=== PATIENT | male | born 1990 | race Caucasian/White ===

== ENCOUNTER 2017-09-15 19:08 | Emergency (ER) | payer OTHER ==
[~2017-09-15] VITALS: Ht 190.5 cm; Wt 104.3 kg
[~2017-09-15 19:08] MED LIST: ALBU90OI INH; DOXY100 PO; HYDACE5 PO; IBUP600 PO; IBUP800 PO; PROM25 PO; RXHYDACE PO; SILSUL1TC TOP
[2017-09-15] MEDS ORDERED: CIPR500 PO (19:21)
[2017-09-15] MEDS ORDERED: BENZ100A PO (19:21)
[2017-09-15] MEDS ORDERED: Flagyl500 MG PO (19:56)
== END 2017-09-15 20:19 | disposition home or self-care (01) ==
LOC: ER 19:08
DX: S81.052A Open bite, left knee, initial encounter (principal); S71.152A Open bite, left thigh, initial encounter; S61.052A Open bite of left thumb without damage to nail, initial encounter; Z23 Encounter for immunization; Z88.0 Allergy status to penicillin; Z79.2 Long term (current) use of antibiotics; W54.0XXA Bitten by dog, initial encounter
CPT/HCPCS: 90471; 90714; 99283

== ENCOUNTER → 2023-10-21 | Outpatient (CLI) | payer BC ==
[~2023-10-21] MED LIST changes: +ASPI81CH PO; +BENZ100A PO; +CIPR500 PO; +ESCI10 PO; +FAMO20; +Flagyl500 MG PO; +METO25 PO; +PANT40 PO
[2023-10-21 09:13] LABS: BASOPHILS ABSOLUTE AUTO 0.02 K/mm3 (0.00-0.23); BASOPHILS PERCENT AUTO 0 % (0-2); EOSINOPHILS ABSOLUTE AUTO 0.01 K/mm3 (0.00-0.68); EOSINOPHILS PERCENT AUTO 0 % (0-6); Hematocrit 47.1 % (37.0-53.0); IMMATURE GRAN ABSOLUTE AUTO 0.02 K/mm3 (0.00-0.10); IMMATURE GRAN PERCENT AUTO 0 % (0-1); LYMPHOCYTES ABSOLUTE AUTO 0.31 K/mm3 (0.84-5.20); LYMPHOCYTES PERCENT AUTO 5 % (21-46); MONOCYTES ABSOLUTE AUTO 0.28 K/mm3 (0.16-1.47); MONOCYTES PERCENT AUTO 4 % (4-13); Mean Corpuscular HGB 27.8 pg (26.0-34.0); Mean Corpuscular Volume 82 fL (80-100); NEUTROPHILS ABSOLUTE AUTO 5.87 K/mm3 (1.96-9.15); NEUTROPHILS PERCENT AUTO 90 % (41-73); Platelet Count 269 K/mm3 (150-400); RDW Coefficient Variation 12.9 % (11.7-14.2); RDW Standard Deviation 37.7 fL (35.1-46.3); Red Blood Cell Count 5.75 M/mm3 (4.30-5.90); White Blood Cell Count 6.51 K/mm3 (4.00-11.30)
[2023-10-21 09:18] LABS: Albumin, Blood 3.8 g/dL (3.4-5.0); Bilirubin, Total 1.4 mg/dL (0.1-1.0); Bun/Creatinine Ratio 12.6 (12.0-20.0); Calcium, Blood 8.9 mg/dL (8.5-10.1); Creatinine, Blood 1.11 mg/dL (0.60-1.20); Globulin, Blood 3.7 g/dL (2.2-4.0); Potassium, Blood 4.4 mmol/L (3.5-5.5); Total Protein, Blood 7.5 g/dL (6.4-8.2)
== END ==
LOC: LAB SHORT 09:01 → LAB 09:01
PROVIDERS: Physician Assistant
DX: R10.9 Unspecified abdominal pain (principal)
CPT/HCPCS: 80053; 83690; 85025